=== PATIENT | male | born 1990 | race Hispanic/Latino ===

== ENCOUNTER 2018-06-12 10:39 | Emergency (ER) | payer OTHER ==
[2018-06-12] MEDS ORDERED: IBUPROFEN 600 MG TABLET ONE (11:40)
[2018-06-12 11:55] LABS: RAPID GROUP A STREP NEGATIVE (NEGATIVE)
[2018-06-12] MEDS ORDERED: ONDANSETRON ODT 4 MG TAB ONE (12:14)
== END 2018-06-12 12:26 | disposition home or self-care (01) ==
LOC: EDH 10:39
DX: B34.9 Viral infection, unspecified (principal); J06.9 Acute upper respiratory infection, unspecified; Z90.49 Acquired absence of other specified parts of digestive tract
CPT/HCPCS: 87804; 87880